=== PATIENT | male | born 1975 | race Caucasian/White ===

== ENCOUNTER 2017-03-08 08:04 | Emergency (ER) | payer BC ==
[2017-03-08 08:15] VITALS: BP 105/63
[2017-03-08] MEDS ORDERED: Fluorescein Sodium TOPICAL* 1 MG TEST OPHTHALMIC ONE (08:19)
--- NOTE | 2017-03-08 08:32 | UC ---
Eye Complaint HPI - HPI Summary HPI Summary: R eye irritation starting yesterday. Started out feeling irritated, "like there' s an eyelash in it." Denies foul drainage, light sensitivity, or pain. No recent grinding or welding. No URI sx or hx of allergies. - History of Current Complaint Chief Complaint: UCEye Stated Complaint: EYE ISSUE Time Seen by Provider: 03/08/17 08:07 Hx Obtained From: Patient Onset/Duration: Gradual Onset, Lasting Days Timing: Constant Severity Initially: Mild Severity Currently: Mild Location of Injury: Conjunctiva Character: Foreign Body Sensation Aggravating Factor(s): Nothing Alleviating Factor(s): Nothing Associated Signs And Symptoms: Positive: Drainage (Clear). Negative: Vision Impairment Bilateral - Allergies/Home Medications Allergies/Adverse Reactions: Allergies Allergy/AdvReac Type Severity Reaction Status Date / Time No Known Allergies Allergy Verified 04/20/16 15:10 PMH/Surg Hx/FS Hx/Imm Hx Other GI/ History: ulcerative colitis - Surgical History Surgical History: None - Family History Known Family History: Positive: Unknown - pt is adopted - Social History Lives: With Family Alcohol Use: Occasionally Substance Use Type: Other Substance Use Comment - Amount & Last Used: occassional Smoking Status (MU): Former Smoker Review of Systems Constitutional: Negative Skin: Negative Eyes: Eye Redness ENT: Negative Respiratory: Negative Cardiovascular: Negative Gastrointestinal: Negative Genitourinary: Negative Motor: Negative Neurovascular: Negative Musculoskeletal: Negative Neurological: Negative Psychological: Negative All Other Systems Reviewed And Are Negative: Yes Physical Exam Triage Information Reviewed: Yes Appearance: Well-Appearing, No Pain Distress, Well-Nourished Vital Signs: Initial Vital Signs Temp 98.1 F 03/08/17 08:08 Pulse 83 03/08/17 08:08 Resp 16 03/08/17 08:08 BP 105/63 03/08/17 08:08 Pulse Ox 100 03/08/17 08:08 Vital Signs Reviewed: Yes Eye Exam: Other - PERRL, no photophobia Eyes: Positive: Conjunctiva Inflamed - R eye, Other: - R eye negative for fluorescein uptake, loose eyelash noted hanging down from upper lid and touching globe. Removed with forceps, pt reports full relief. ENT Exam: Normal ENT: Positive: Normal ENT inspection, Hearing grossly normal, Pharynx normal, TMs normal Dental Exam: Normal Neck exam: Normal Neck: Positive: Supple, Nontender, No Lymphadenopathy Respiratory Exam: Normal Respiratory: Positive: Chest non-tender, Lungs clear, Normal breath sounds, No respiratory distress, No accessory muscle use Cardiovascular Exam: Normal Cardiovascular: Positive: RRR, No Murmur Musculoskeletal Exam: Normal Neurological Exam: Normal Neurological: Positive: Alert Psychological Exam: Normal Skin Exam: Normal Eye Complaint Course/Dx - Differential Dx/Diagnosis Provider Diagnoses: R eye FB removal Discharge - Discharge Plan Condition: Stable Disposition: HOME Patient Education Materials: Eye Foreign Body (ED) Additional Instructions: There is no scratch on your cornea; your symptoms should remain fully resolved now that the eyelash is out of your eye. If you have new or worsening symptoms, please return here.
== END 2017-03-08 08:38 | disposition home or self-care (01) ==
LOC: UCEAST 08:04
DX: T15.81XA Foreign body in other and multiple parts of external eye, right eye, initial encounter (principal); Z87.891 Personal history of nicotine dependence
CPT/HCPCS: 99211; A9270-GY; G0463

== ENCOUNTER 2018-03-06 12:35 | Emergency (ER) | payer BC ==
[2018-03-06 12:44] VITALS: BP 136/78
--- NOTE | 2018-03-06 12:45 | UC ---
Skin Complaint HPI - HPI Summary HPI Summary: 43 yo female to male transitioned pt presents with bug bite to right 4th toe that occurred about 3 hours [employer]. He tells me that he was in the shower and felt a sharp pain at this toe - looked down and saw a bug that he promptly killed. He cleaned the area with alcohol and applied neosporin. He is concerned because his toe is swollen at the bite site. Brought the bug with him today. Denies fever/chills. - History of Current Complaint Chief Complaint: UCSkin Stated Complaint: INSECT BITE Hx Obtained From: Patient Onset/Duration: Sudden Onset Skin Exposure Onset/Duration: Hours Ago Timing: Constant Onset Severity: Moderate Current Severity: Moderate Pain Intensity: 6 Pain Scale Used: 0-10 Numeric - Allergy/Home Medications Allergies/Adverse Reactions: Allergies Allergy/AdvReac Type Severity Reaction Status Date / Time No Known Allergies Allergy Verified 03/06/18 12:44 Home Medications: Home Medications Kanasa 1,000 mg IN DAILY 03/06/18 [History] Mesalamine [Delzicol] 1 tab PO DAILY 03/06/18 [History Confirmed 03/06/18] Testosterone [Axiron] 0.5 ml INJ WEEKLY 03/06/18 [History Confirmed 03/06/18] buPROPion TAB* [Wellbutrin TAB*] 150 mg PO DAILY 03/06/18 [History Confirmed 03/17] Review of Systems Constitutional: Negative Skin: Other - Bug bite right 4th toe Respiratory: Negative Cardiovascular: Negative Gastrointestinal: Negative Neurological: Negative Psychological: Negative All Other Systems Reviewed And Are Negative: Yes PMH/Surg Hx/FS Hx/Imm Hx - Additional Past Medical History Additional PMH: UC Anxiety - Surgical History Surgical History: Yes Surgery Procedure, Year, and Place: double mastectomy for reprodctive transition - Family History Known Family History: Positive: Unknown - pt is adopted - Social History Occupation: Employed Full-time Lives: With Family Alcohol Use: Occasionally Substance Use Type: Marijuana, Other Substance Use Comment - Amount & Last Used: occassional Smoking Status (MU): Light Every Day Tobacco Smoker Type: Cigarettes Physical Exam - Summary Physical Exam Summary: GENERAL: NAD. WDWN. No pain distress. SKIN: Right 4th toe with 1mm bug bite. Mildly edematous. No erythema or ecchymosis. No streaking, bleeding, or drainage. NECK: Supple. Nontender. No lymphadenopathy. CHEST: No accessory muscle use. Breathing comfortably and in no distress. CV: RRR. Without m/r/g. NEURO: Alert. CN II-XII grossly intact. PSYCH: Age appropriate behavior. Triage Information Reviewed: Yes Vital Signs: Initial Vital Signs Temp 98.4 F 03/06/18 12:38 Pulse 73 03/06/18 12:38 Resp 18 03/06/18 12:38 BP 136/78 03/06/18 12:38 Pulse Ox 100 03/06/18 12:38 Course/Dx - Course Course Of Treatment: Bug bite to right 4th toe. Appears as expected for a bug bite and without signs of concern. Advised pt to ice the area, keep covered, and take tylenol prn pain/swelling. - Diagnoses Provider Diagnoses: Bug bite right 4th toe Discharge - Sign-Out/Discharge Documenting (check all that apply): Discharge/Admit/Transfer - Discharge Plan Condition: Stable Disposition: HOME Patient Education Materials: Insect Bite or Sting (ED) Referrals: Prema Louis MD [Primary Care Provider] - Additional Instructions: If you develop a fever, shortness of breath, chest pain, new or worsening symptoms - please call your PCP or go to the ED. - Billing Disposition and Condition Condition: STABLE Disposition: Home
== END 2018-03-06 12:56 | disposition home or self-care (01) ==
LOC: UCEAST 12:35
DX: S90.464A Insect bite (nonvenomous), right lesser toe(s), initial encounter (principal); W57.XXXA Bitten or stung by nonvenomous insect and other nonvenomous arthropods, initial encounter; Y93.E1 Activity, personal bathing and showering; Y92.002 Bathroom of unspecified non-institutional (private) residence as the place of occurrence of the external cause; F41.9 Anxiety disorder, unspecified; F17.210 Nicotine dependence, cigarettes, uncomplicated
CPT/HCPCS: 99211; G0463

== ENCOUNTER 2021-11-07 15:51 | Observation (INO) ==
[2021-11-07] MEDS ORDERED: Buffered Lidocaine 1% SYRIN 1 ml INTRADERM ONE (16:12)
[2021-11-07] MEDS ORDERED: HYDROmorphone 1 MG/1 ML SYRINGE IV PRN (16:13)
[2021-11-07] MEDS ORDERED: DiMENhydriNATE IV 50 mg/ml 1 ml VIAL IV PUSH PRN (16:13)
[2021-11-07] MEDS ORDERED: fentaNYL 100 mcg/2 ml 50 MCG/ML VIAL IV PRN (16:13)
[2021-11-07] MEDS ORDERED: Naloxone 0.4 mg VIAL 0.4 mg/ml 1 ml VIAL IV PRN (16:13)
[2021-11-07] MEDS ORDERED: Metoclopramide 5 MG/ML VIAL (10 mg) IV PRN (16:13)
[2021-11-07] MEDS ORDERED: Ondansetron 4 mg VIAL 2 MG/ML 2 ml VIAL IV PRN ×2 (16:13→20:43)
[2021-11-07] MEDS ORDERED: Lactated Ringers 1000 ml BAG 1,000 ML IV SCH (17:00)
[2021-11-07] MEDS ORDERED: Rocuronium 50 mg VIAL 10 mg/ml 5 ml VIAL (50 mg) ONE (18:00)
[2021-11-07] MEDS ORDERED: fentaNYL 100 mcg/2 ml 50 MCG/ML VIAL ONE (18:00)
[2021-11-07] MEDS ORDERED: Midazolam 2 mg/2 ml VIAL 1 mg/ml 2 ml VIAL (2 mg) ONE (18:08)
[2021-11-07] MEDS ORDERED: Indomethacin 50 mg SUPP (NF) PR ONE (18:34)
[2021-11-07] MEDS ORDERED: Dexamethasone IV 4 MG/ML VIAL 1 ml VIAL ONE (18:58)
[2021-11-07] MEDS ORDERED: Ondansetron 4 mg VIAL 2 MG/ML 2 ml VIAL ONE (18:58)
[2021-11-07] MEDS ORDERED: Acetaminophen IV 1 GM/100ML 100 ML IV PRN (20:43)
[2021-11-07] MEDS ORDERED: Morphine 2 MG/ML SYRINGE IV PRN (20:46)
[2021-11-07] MEDS ORDERED: MESALAMINE 400 MG PO SCH (23:00)
[2021-11-07] MEDS ORDERED: Tenofovir/Emtricitab 300/200 MG TAB PO SCH (23:00)
[2021-11-07] MEDS: NS 0.9% 1000 ml BAG 1,000 ML IV SCH (23:23)
[2021-11-08 06:53] LABS: ABS Monocytes 0.4 10^3/ul (0-0.8); ABS Neutrophils 4.4 10^3/ul (1.5-7.7); Eosinophil % 0.1 %; Hematocrit 39 % (42-52); Hemoglobin 13.6 g/dL (14.0-18.0); Lymphocyte % 16.9 %; Mean Corpuscular HGB Conc 35 g/dL (31-36); Mean Corpuscular Hemoglobin 34 pg (27-31); Mean Corpuscular Volume 97 fL (80-94); Mean Platelet Volume 8.4 fL (7.4-10.4); Platelet Count 384 10^3/uL (150-450); Red Blood Count 4.07 10^6 /uL (4.18-5.48); Red Cell Distribution Width 15 % (10-15); White Blood Count 5.9 10^3/uL (3.5-10.8)
[2021-11-08 07:15] LABS: Albumin 3.8 g/dL (3.2-5.2); Albumin/Globulin Ratio 1.5 (1-3); Calcium 8.9 mg/dL (8.6-10.3); Globulin 2.5 g/dL (2-4); Total Bilirubin 1.9 mg/dL (0.2-1.0); Total Protein 6.3 g/dL (6.4-8.9); eGFR CKD-EPI 106.4 (>60)
[2021-11-08 07:24] LABS: Potassium 5.4 mmol/L (3.5-5.0)
[2021-11-08] MEDS: NS 0.9% 1000 ml BAG 1,000 ML IV SCH (09:26)
[2021-11-08 15:18] LABS: Albumin 3.7 g/dL (3.2-5.2); Albumin/Globulin Ratio 1.5 (1-3); Calcium 8.6 mg/dL (8.6-10.3); Globulin 2.4 g/dL (2-4); Potassium 4.4 mmol/L (3.5-5.0); Total Bilirubin 1.9 mg/dL (0.2-1.0); Total Protein 6.1 g/dL (6.4-8.9); eGFR CKD-EPI 106.4 (>60)
[2021-11-08] MEDS ORDERED: ceFAZolin 1 GM ADVAN 1 GM ADDV.VIAL IVPB ONE (15:23)
[2021-11-08] MEDS ORDERED: fentaNYL 100 mcg/2 ml 50 MCG/ML VIAL IV PRN (15:55)
[2021-11-08] MEDS ORDERED: Morphine 4 MG/ML VIAL (1 ml) IV PRN (15:55)
[2021-11-08] MEDS ORDERED: Naloxone 0.4 mg VIAL 0.4 mg/ml 1 ml VIAL IV PRN (15:55)
[2021-11-08] MEDS ORDERED: Bupivacaine 0.25% EPI 200,000 30 ML SDV ONE ×2 (15:58→18:11)
[2021-11-08] MEDS ORDERED: Rocuronium 50 mg VIAL 10 mg/ml 5 ml VIAL (50 mg) ONE (15:58)
[2021-11-08] MEDS ORDERED: ceFAZolin 2 GM PREMIX 2 GM/50 ML BAG IVPB ONE (16:00)
[2021-11-08] MEDS ORDERED: Lidocaine 2% PF 5 ML VIAL ONE (16:00)
[2021-11-08] MEDS ORDERED: Propofol 10 MG/ML 20 ML BTL ONE (16:00)
[2021-11-08] MEDS ORDERED: ceFAZolin 2 GM in NS PREMIX 2 GM/100 ML BAG IVPB ONE (16:00)
[2021-11-08] MEDS ORDERED: fentaNYL 100 mcg/2 ml 50 MCG/ML VIAL ONE (16:00)
[2021-11-08] MEDS ORDERED: fentaNYL 250 mcg/5 ml 50 MCG/ML 5 ml VIAL (250 MCG) ONE (16:00)
[2021-11-08] MEDS ORDERED: Midazolam 2 mg/2 ml VIAL 1 mg/ml 2 ml VIAL (2 mg) ONE (16:09)
[2021-11-08] MEDS ORDERED: Ondansetron 4 mg VIAL 2 MG/ML 2 ml VIAL ONE (16:51)
[2021-11-08] MEDS ORDERED: Dexamethasone IV 4 MG/ML VIAL 1 ml VIAL ONE (16:51)
[2021-11-08] MEDS ORDERED: Iohexol 180 (CONTRAST) 20 ML SDV IV ONE (17:25)
[2021-11-08 20:10] VITALS: BP 117/70
== END 2021-11-08 20:17 | disposition home or self-care (01) ==
LOC: OR 15:51 → SSU 15:51
PROVIDERS: ADMIT Internal Medicine; ATTEND Surgery
PROC: O.GIERC (2021-11-07 13:30)

== ENCOUNTER 2022-06-20 13:37 | Observation (INO) ==
[2022-06-20 17:00] LABS: Hematocrit 41 % (42-52); Hemoglobin 13.6 g/dL (14.0-18.0); Mean Corpuscular HGB Conc 34 g/dL (31-36); Mean Corpuscular Hemoglobin 32 pg (27-31); Mean Corpuscular Volume 95 fL (80-94); Mean Platelet Volume 8.9 fL (7.4-10.4); Platelet Count 266 10^3/uL (150-450); Red Blood Count 4.28 10^6 /uL (4.18-5.48); Red Cell Distribution Width 15 % (10-15); White Blood Count 18.5 10^3/uL (3.5-10.8)
[2022-06-20 17:51] LABS: Albumin 2.7 g/dL (3.2-5.2); Albumin/Globulin Ratio 0.9 (1-3); C Reactive Protein 65.63 mg/L (<8.01); Calcium 7.7 mg/dL (8.6-10.3); Potassium 4.5 mmol/L (3.5-5.0); Total Bilirubin 0.6 mg/dL (0.2-1.0); Total Protein 5.7 g/dL (6.4-8.9); eGFR CKD-EPI 93.4 (>60)
[2022-06-20] MEDS ORDERED: Iohexol 350 (CONTRAST) 500 ML MDV IV ONE (18:34)
[2022-06-20 18:57] LABS: ABS Basophils 0.1 10^3/ul (0-0.2); ABS Lymphocytes 11.4 10^3/ul (1.0-4.8); ABS Nucleated RBC 0.1 10^3/ul; Eosinophil % 0.1 %; Lymphocyte % 61.4 %; Nucleated Red Blood Cells % 0.3
[2022-06-20 20:02] LABS: Urine Appearance Clear; Urine Bilirubin Negative (Negative); Urine Blood Negative (Negative); Urine Color Yellow; Urine Glucose Negative (Negative); Urine Ketones Negative (Negative); Urine Nitrite Negative (Negative); Urine Protein 1+(30 mg/dL) (Negative); Urine Specific Gravity 1.019 (1.002-1.030); Urine Urobilinogen Negative (Negative)
[2022-06-20 20:10] LABS: Urine Bacteria Absent (Absent); Urine Red Blood Cell Absent (Absent); Urine Squamous Epithelial Cell Present (Absent); Urine White Blood Cell Absent (Absent)
[2022-06-20] MEDS ORDERED: methylPREDNISolone SOD SUCC 125 mg 2 ML VIAL IV ONE (21:21)
[2022-06-20] MEDS ORDERED: Ciprofloxacin 400mg IVPREMIX 400 MG/200 ML BAG IVPB ONE (21:21)
[2022-06-20] MEDS ORDERED: metroNIDAZOLE IV 500 MG/100ML 500 MG/100 ML BAG IVPB ONE (21:22)
[2022-06-20] MEDS ORDERED: Enoxaparin 40 MG/0.4 ML SYR SUBCUT SCH (23:00)
[2022-06-21] MEDS ORDERED: Lactated Ringers 1000 ml BAG 1,000 ML IV ONE (04:30)
[2022-06-21 06:59] LABS: Hematocrit 38 % (42-52); Hemoglobin 12.9 g/dL (14.0-18.0); Mean Corpuscular HGB Conc 34 g/dL (31-36); Mean Corpuscular Hemoglobin 32 pg (27-31); Mean Corpuscular Volume 94 fL (80-94); Mean Platelet Volume 9.2 fL (7.4-10.4); Platelet Count 263 10^3/uL (150-450); Red Blood Count 4.05 10^6 /uL (4.18-5.48); Red Cell Distribution Width 15 % (10-15); White Blood Count 12.4 10^3/uL (3.5-10.8)
[2022-06-21 07:48] LABS: Albumin 2.7 g/dL (3.2-5.2); Albumin/Globulin Ratio 0.9 (1-3); Calcium 7.7 mg/dL (8.6-10.3); Globulin 2.9 g/dL (2-4); Magnesium 2.1 mg/dL (1.9-2.7); Potassium 4.5 mmol/L (3.5-5.0); Total Bilirubin 0.6 mg/dL (0.2-1.0); Total Protein 5.6 g/dL (6.4-8.9); eGFR CKD-EPI 100.7 (>60)
[2022-06-21] MEDS ORDERED: metroNIDAZOLE IV 500 MG/100ML 500 MG/100 ML BAG IVPB SCH (08:00)
[2022-06-21] MEDS ORDERED: methylPREDNISolone SOD SUCC 40 mg/ml 1 ml VIAL IV SCH (09:00)
[2022-06-21] MEDS ORDERED: Ciprofloxacin 400mg IVPREMIX 400 MG/200 ML BAG IVPB SCH (12:00)
[2022-06-21 15:17] VITALS: BP 114/75
[2022-06-23 08:56] LABS: EBV Capsid Ag IgG Ab Positive (Negative); EBV Capsid Ag IgM Ab Positive (Negative); Epstein-Barr Nuclear Antigen Positive (Negative)
[2022-06-24 17:48] LABS: Anaplasma phagocytophilum Negative (Negative); B. miyamotoi PCR, B Negative (Negative); Babesia divergens/MO-1 Negative (Negative); Babesia ducani Negative (Negative); Ehrlichia chaffeensis Negative (Negative); Ehrlichia ewingii/canis Negative (Negative); Ehrlichia muris eauclairensis Negative (Negative)
[2022-06-25 19:13] LABS: IgG Immunoblot Negative (Negative); IgM Immunoblot Negative (Negative)
== END 2022-06-21 17:05 | disposition home or self-care (01) ==
LOC: EDHOLD 13:37 → ED 13:37 → SUATTDRO 22:13 → MED 06-21 00:15
PROVIDERS: ADMIT Hospitalist; ATTEND Student in an Organized Health Care Education/Training Program

== ENCOUNTER 2022-11-12 16:03 | Observation (INO) ==
[2022-11-12] MEDS ORDERED: Iohexol 350 (CONTRAST) 500 ML MDV IV ONE (16:14)
[2022-11-12 18:02] LABS: ABS Basophils 0.1 10^3/ul (0-0.2); ABS Lymphocytes 3.4 10^3/ul (1.0-4.8); Hematocrit 43 % (42-52); Hemoglobin 13.6 g/dL (14.0-18.0); Mean Corpuscular HGB Conc 31 g/dL (31-36); Mean Corpuscular Hemoglobin 30 pg (27-31); Mean Corpuscular Volume 96 fL (80-94); Mean Platelet Volume 7.3 fL (7.4-10.4); Nucleated Red Blood Cells % 0.1; Platelet Count 314 10^3/uL (150-450); Red Blood Count 4.51 10^6 /uL (4.18-5.48); Red Cell Distribution Width 18 % (10-15); White Blood Count 13.4 10^3/uL (3.5-10.8)
[2022-11-12 18:49] LABS: Activated Partial Thrombo Time 21.4 seconds (26.0-38.0); INR 0.95 (0.88-1.18)
[2022-11-12 18:49] LABS: Albumin/Globulin Ratio 1.4 (1-3); C Reactive Protein 1.29 mg/L (<8.01); Creatinine, Serum 1.15 mg/dL (0.67-1.17); Globulin 2.8 g/dL (2-4); Potassium 4.2 mmol/L (3.5-5.0); Total Bilirubin 0.3 mg/dL (0.2-1.0); Total Protein 6.8 g/dL (6.4-8.9)
[2022-11-12 19:27] LABS: High Sensitivity Troponin 1 Hr 9 pg/mL (<20)
[2022-11-13 07:40] LABS: ABS Lymphocytes 4.8 10^3/ul (1.0-4.8); ABS Monocytes 0.9 10^3/ul (0-0.8); ABS Neutrophils 5.2 10^3/ul (1.5-7.7); Eosinophil % 0.4 %; Hematocrit 37 % (42-52); Hemoglobin 11.9 g/dL (14.0-18.0); Lymphocyte % 43.8 %; Mean Corpuscular HGB Conc 32 g/dL (31-36); Mean Corpuscular Hemoglobin 31 pg (27-31); Mean Corpuscular Volume 96 fL (80-94); Mean Platelet Volume 7.4 fL (7.4-10.4); Platelet Count 259 10^3/uL (150-450); Red Blood Count 3.87 10^6 /uL (4.18-5.48); Red Cell Distribution Width 18 % (10-15)
[2022-11-13 07:53] LABS: Calcium 8.3 mg/dL (8.6-10.3); Creatinine, Serum 1.08 mg/dL (0.67-1.17); Potassium 3.9 mmol/L (3.5-5.0); eGFR CKD-EPI 84.1 (>60)
[2022-11-13] MEDS ORDERED: MESALAMINE 400 MG PO SCH (09:00)
[2022-11-13] MEDS ORDERED: Psyllium PAK PO SCH (10:00)
[2022-11-13 14:30] VITALS: BP 125/78
[2022-11-13 16:15] LABS: Hematocrit 38 % (42-52)
[2022-11-14 16:23] LABS: DRVVT Screen Ratio 2.01 ratio (<1.20); LAC APTT 26 sec (25 - 37); LAC INR 1.3 (0.9-1.1); Prothrombin Time(LAC) 14.3 sec (9.4 - 12.5)
[2022-11-14 16:26] LABS: Thrombin Time (Bovine), P 18.2 sec
[2022-11-14 16:32] LABS: LAC PT Mix 1:1 12.9 sec (9.4 - 12.5)
[2022-11-14 18:08] LABS: Phospholipid Ab IgG < 9.4 GPL; Phospholipid Ab IgM, S < 9.4 MPL
[2022-11-15 07:51] LABS: Testosterone Total 669.26 ng/dL (240-950)
[2022-11-17 13:55] LABS: Protein C Activity 218 % (70 - 150)
[2022-11-18 08:42] LABS: Prothrombin 20210 Mutation Negative (Negative)
[2022-11-18 08:44] LABS: Factor V Leiden Mutation Negative (Negative)
== END 2022-11-13 18:00 | disposition home or self-care (01) ==
LOC: ED 16:03 → EDHOLD 16:03 → MEDTELE 11-13 00:42
PROVIDERS: ADMIT Student in an Organized Health Care Education/Training Program; ATTEND Student in an Organized Health Care Education/Training Program